=== PATIENT | male | born 1985 | race Caucasian/White ===

== ENCOUNTER 2016-11-19 18:46 | Emergency (ER) | payer OTHER ==
[2016-11-19] MEDS ORDERED: ONDANSETRON 4 MG TAB.RAPDIS PO ONE (19:27)
[2016-11-19] MEDS ORDERED: LORAZEPAM 1 MG TABLET PO ONE (19:27)
--- NOTE | 2016-11-19 19:30 | ER Document Report ---
ED Medical Screen (RME) - General Chief Complaint: Alcohol Withdrawl Stated Complaint: WEAKNESS Mode of Arrival: Ambulatory Information source: Patient Notes: Patient presents complaining of alcohol withdrawal symptoms. Patient reports tachycardia, tremors, nausea, vomiting and diaphoresis at home. Patient states that he last drank beer last night. Patient reports he typically drinks 12-18 beers a day. Patient states his doctor put him on Lexapro and naltrexone to help with his symptoms. hx: Hypertension, chronic alcoholism - Related Data Allergies/Adverse Reactions: No Known Allergies Allergy (Unverified 11/19/16 19:27) Physical Exam - Vital signs Vitals: Temp Pulse Resp BP Pulse Ox 98.1 F 95 20 148/80 H 98 11/19/16 19:03 11/19/16 19:03 11/19/16 19:03 11/19/16 19:03 11/19/16 19:03 - Neurological Neuro grossly intact: Yes Claude Coma Scale Eye Opening: Spontaneous Claude Coma Scale Verbal: Oriented Claude Coma Scale Motor: Obeys Commands Larry Coma Scale Total: 15 Notes: Tremors to bilateral upper extremities Course - Re-evaluation Re-evalutation: 11/19/16 19:[address] Scott regarding patient presentation, recommends giving Ativan 1 mg by mouth now. - Vital Signs Vital signs: Temp Pulse Resp BP Pulse Ox 98.1 F 95 20 148/80 H 98 11/19/16 19:03 11/19/16 19:03 11/19/16 19:03 11/19/16 19:03 11/19/16 19:03
[2016-11-19 19:59] LABS: ABSOLUTE MONOCYTES (AUTO) 0.7 10^3/uL (0.1-1.4); BASOPHILS % (AUTO) 0.3 % (0-2); EOSINOPHILS % (AUTO) 0.1 % (0-6); HEMATOCRIT 41.4 % (37.9-51.0); HEMOGLOBIN 14.3 g/dL (13.5-17.0); HGB HCT DIFFERENCE 1.5; LYMPHOCYTES % (AUTO) 8.8 % (13-45); MEAN CORPUSCULAR HEMOGLOBIN 32.6 pg (27.0-33.4); MEAN CORPUSCULAR HGB CONC 34.5 g/dL (32.0-36.0); MEAN CORPUSCULAR VOLUME 95 fl (80-97); MONOCYTES % (AUTO) 6.2 % (3-13); RED BLOOD COUNT 4.38 10^6/uL (4.35-5.55); RED CELL DISTRIBUTION WIDTH 13.4 % (11.5-14.0); SEGMENTED NEUTROPHILS % (AUTO) 84.6 % (42-78); WHITE BLOOD COUNT 11.8 10^3/uL (4.0-10.5)
[2016-11-19 20:02] LABS: APPEARANCE,URINE CLEAR; BILIRUBIN,URINE NEGATIVE (NEGATIVE); GLUCOSE, URINE >=500 mg/dL (NEGATIVE); KETONES,URINE 80 mg/dL (NEGATIVE); LEUKOCYTE ESTERASE,URINE NEGATIVE (NEGATIVE); NITRITE,URINE NEGATIVE (NEGATIVE); PROTEIN,URINE 30 mg/dL (NEGATIVE); URINE SPECIFIC GRAVITY 1.013; UROBILINOGEN,URINE NEGATIVE mg/dL (<2.0)
[2016-11-19 20:16] LABS: ALANINE AMINOTRANSFERASE 77 U/L (21-72); ALBUMIN 4.8 g/dL (3.5-5.0); ALCOHOL < 10 mg/dL (NONE DETECTED); ALKALINE PHOSPHATASE 86 U/L (38-126); ANION GAP 14 (5-19); ASPARTATE AMINO TRANSFERASE 57 U/L (17-59); BILIRUBIN,TOTAL 0.8 mg/dL (0.2-1.3); BLOOD UREA NITROGEN 8 mg/dL (7-20); CALCIUM 10.2 mg/dL (8.4-10.2); CARBON DIOXIDE 24 mmol/L (22-30); CHLORIDE 95 mmol/L (98-107); CREATININE RESULT 0.56 mg/dL (0.52-1.25); GLUCOSE 103 mg/dL (75-110); LIPASE 50.1 U/L (23-300); POTASSIUM 4.4 mmol/L (3.6-5.0); SODIUM 133.4 mmol/L (137-145); TOTAL PROTEIN 7.7 g/dL (6.3-8.2); URINE BARBITURATES SCREEN NEGATIVE; URINE METHADONE SCREEN NEGATIVE; URINE OPIATES LOW NEGATIVE; URINE PHENCYCLIDINE SCREEN NEGATIVE
--- NOTE | 2016-11-19 20:52 | ER Document Report ---
ED General - General Chief Complaint: Alcohol Withdrawl Stated Complaint: WEAKNESS Mode of Arrival: Ambulatory Information source: Patient Notes: Patient presents to the emergency department with report of withdrawal. Patient reports he drinks 12-20 beers a night for the past 13 years. Patient reports recently quit drinking. Reports last beer was last night. This morning he took his medications Lexapro and naltrexone, took a sip a beer and experienced projectile vomiting. Patient presented to the emergency department because he felt like his heart was racing he was sweaty nauseated. Patient denies suicide homicide ideations. He has his at his side. She reports she will be with him during this time. Patient reports the [place] is helping him. He has not attended any type of support groups. Patient was provided with Ativan when he first arrived. He reports he's feeling fine now. TRAVEL OUTSIDE OF THE [place] IN LAST 30 DAYS: No - HPI Onset: This morning Onset/Duration: Sudden Quality of pain: Achy Pain Level: 3 Associated symptoms: Body/muscle aches, Nausea, Vomiting, Sweating Exacerbated by: Denies Relieved by: Denies Similar symptoms previously: No Recently seen / treated by doctor: No - Related Data Allergies/Adverse Reactions: No Known Allergies Allergy (Unverified 11/19/16 19:27) Past Medical History - General Information source: Patient - Social History Smoking Status: Current Every Day Smoker Cigarette use (# per day): Yes Chew tobacco use (# tins/day): Yes Frequency of alcohol use: Heavy - quit drinking last night Drug Abuse: None Occupation: unemployed Lives with: Family Family History: Other - father and grandfather alcoholics Patient has suicidal ideation: No Patient has homicidal ideation: No - Past Medical History Cardiac Medical History: Reports: Hx Hypertension Renal/ Medical History: Denies: Hx Peritoneal Dialysis Surgical Hx: Negative Review of Systems - Review of Systems Notes: Review HPI for review of systems., All other systems negative Physical Exam - Vital signs Vitals: Temp Pulse Resp BP Pulse Ox 98.1 F 95 20 148/80 H 98 11/19/16 19:03 11/19/16 19:03 11/19/16 19:03 11/19/16 19:03 11/19/16 19:03 - Notes Notes: PHYSICAL EXAMINATION: GENERAL: Well-appearing and in no acute distress calm nontoxic looking HEAD: Atraumatic, normocephalic. EYES: Pupils equal round and reactive to light, extraocular movements intact, sclera anicteric, conjunctiva are normal. ENT: TM WNL, nares patent, oropharynx clear without exudates. Moist mucous membranes. NECK: Normal range of motion, supple without lymphadenopathy LUNGS: CTAB and equal. No wheezes rales or rhonchi. HEART: Regular rate and rhythm without murmurs BACK: No c/o pain ABDOMEN: Soft, no tenderness. No guarding, no rebound EXTREMITIES: Normal range of motion, no pitting edema. No cyanosis. NEUROLOGICAL: Cranial nerves grossly intact. Normal sensory/motor PSYCH: Normal mood, normal affect. calm, answers all questions appropriately SKIN: Warm, Dry, normal turgor, no rashes or lesions noted Course - Re-evaluation Re-evalutation: 11/19/16 21:23 I spent a long time discussing alcohol withdrawal with patient and his . We discussed support groups including RISSA and Erik. Patient is calm. He verbalized understanding to everything we talked about. I have consulted the attending provider Dr Bethea per [facility] guidelines. She was updated on patient current medications. Advised to dispo with valium taper. Patient and updated on plan, agree and verbalized understanding. Patient was instructed to return to the emergency department immediately for any concerns respiratory distress return of vomiting. - Vital Signs Vital signs: Temp Pulse Resp BP Pulse Ox 98.6 F 88 16 146/86 H 97 11/19/16 21:50 11/19/16 21:50 11/19/16 21:50 11/19/16 21:50 11/19/16 21:50 - Laboratory Result Diagrams: 11/19/16 19:30 11/19/16 19:30 Laboratory results interpreted by me: 11/19/16 11/19/16 11/19/16 19:30 19:30 19:30 WBC 11.8 H Seg Neutrophils % 84.6 H Lymphocytes % 8.8 L Absolute Neutrophils 10.0 H Sodium 133.4 L Chloride 95 L ALT 77 H Urine Protein 30 H Urine Glucose (UA) >=500 H Urine Ketones 80 H Discharge - Discharge Clinical Impression: Elevated blood pressure reading Alcohol withdrawal Qualifiers: Complication of substance-induced condition: uncomplicated Qualified Code(s): F10.230 - Alcohol dependence with withdrawal, uncomplicated Condition: Stable Disposition: HOME, SELF-CARE Instructions: Antinausea Medication ([facility]), Benzodiazepines ([facility]) Additional Instructions: *You have been evaluated for alcohol withdrawl *Take medication as prescribed *Follow up with a support group- AA tomorrow *[facility] *Return to ED for worsening condition, changes, needs Prescriptions: Diazepam [Valium 5 mg Tablet] 10 mg PO TID #15 tablet Forms: Elevated Blood Pressure
[2016-11-19] MEDS ORDERED: ONDANSETRON ODT 4 MG TAB (6 TAB/DSPK) PO PRN (21:00)
[2016-11-19 23:36] VITALS: BP 146/86
== END 2016-11-19 21:50 | disposition home or self-care (01) ==
LOC: ER 18:46
DX: R03.0 Elevated blood-pressure reading, without diagnosis of hypertension (principal); F10.230 Alcohol dependence with withdrawal, uncomplicated; R53.1 Weakness; Z79.899 Other long term (current) drug therapy; F17.210 Nicotine dependence, cigarettes, uncomplicated
CPT/HCPCS: 99284; 36415; 80307 ×2; 83690; 85025; 80053; 81001; S0119

== ENCOUNTER → 2017-07-09 | Outpatient (CLI) | payer OTHER ==
--- NOTE | 2017-07-10 08:44 | RADIOLOGY REPORT (SQ) ---
EXAM DESCRIPTION: MRI LT LOWER JOINT WITHOUT COMPLETED DATE/TIME: 07/09/2017 9:19 pm REASON FOR STUDY: OTHER INSTABILITY, LEFT KNEE,RADICULOPATHY, LUMBAR REGION M25.362 OTHER INSTABILI TY, LEFT KNEE M54.16 RADICULOPATHY, LUMBAR REGION COMPARISON: None. TECHNIQUE: Leftknee images acquired and stored on PACS. Multiplanar images include fat sensitive se quences as T1, water sensitive sequences as FST2 or STIR, cartilage sensitive sequences as FSPD, and gradient echo sequences. LIMITATIONS: None. FINDINGS: JOINT AND BURSAE: No effusion. BONE CORTEX AND MARROW: A nondepressed nondisplaced lateral tibial plateau fracture is present on cor onal image 18 and sagittal image 20. This involves the lateral edge of the articular surface, 2 cm b y 1 cm in size. Surrounding marrow edema. ACL: Intact. No degeneration or ganglion cyst. PCL: Intact. MCL: Intact. No periligamentous edema or fluid. LCL: Intact. No periligamentous edema or fluid. MEDIAL MENISCUS: No tears. No abnormal signal. LATERAL MENISCUS: No tears. No abnormal signal. MEDIAL COMPARTMENT: Cartilage preserved. No bone bruises or reactive marrow edema. No osteophytes. LATERAL COMPARTMENT: Cartilage preserved. No bone bruises or reactive marrow edema. No osteophytes. PATELLA: No chondromalacia. No subchondral cysts. Medial and lateral retinacula intact. EXTENSOR MECHANISM: Intact. Quadriceps and patella tendons normal. SOFT TISSUES: Adjacent muscles and subcutaneous tissues normal. Normal flow void in popliteal artery and vein. OTHER: No other significant finding. IMPRESSION: Nondepressed nondisplaced lateral tibial plateau fracture TECHNICAL DOCUMENTATION: JOB ID: [id number] [employer]- All Rights Reserved
--- NOTE | 2017-07-10 08:49 | RADIOLOGY REPORT (SQ) ---
EXAM DESCRIPTION: MRI LUMBAR SPINE WITHOUT COMPLETED DATE/TIME: 07/09/2017 9:19 pm REASON FOR STUDY: OTHER INSTABILITY, LEFT KNEE,RADICULOPATHY, LUMBAR REGION M25.362 OTHER INSTABILI TY, LEFT KNEE M54.16 RADICULOPATHY, LUMBAR REGION COMPARISON: None. TECHNIQUE: Sagittal and Axial imaging includes T1, T2, STIR and gradient echo sequences. Coronal T2/ HASTE imaging. LIMITATIONS: None. FINDINGS: VISUALIZED UPPER ABDOMEN: Limited evaluation. No acute or suspicious findings suggested. SEGMENTATION: No transitional anatomy. The lowest well-developed disc space is labeled L5-S1. ALIGNMENT: Anatomic. VERTEBRAE: Intact. BONE MARROW: Normal. No marrow replacement or reactive changes. DISC SIGNAL: Decreased T2 weighted intervertebral disc signal at L5-S1. POSTERIOR ELEMENTS: Generally intact. No pars defect evident. HARDWARE: None in the spine. CORD AND CONUS: Normal in size and signal intensity. Conus at the T12-L1 level. SOFT TISSUES: No aortic aneurysm seen. No bulky retroperitoneal adenopathy or mass. No paraspinal mas s or fluid. T11-12: At the upper edge of the field of view. Minimal bilateral facet hypertrophy. No central or foraminal stenosis T12-L1: No significant posterior disc bulging. Mild bilateral facet and ligament hypertrophy. No c entral or foraminal stenosis. L1-L2: No significant spinal stenosis or exit foraminal stenosis. Mild bilateral facet hypertrophy L2-L3: No significant spinal stenosis or exit foraminal stenosis. Mild bilateral facet hypertrophy L3-L4: No significant spinal stenosis or exit foraminal stenosis. Mild bilateral facet hypertrophy L4-L5: Broad diffuse posterior disc bulge. Moderate bilateral facet and ligament hypertrophy. Borde rline central canal narrowing. No significant foraminal narrowing L5-S1: Broad diffuse posterior disc bulging. Small central disc protrusion/ herniation partly efface s the ventral epidural fat without central stenosis. No significant mass effect on the exiting L5 or proximal S1 nerve roots. Mild bilateral inferior foraminal narrowing without exiting L5 nerve root impingement. SACRUM: Visualized upper sacrum intact. OTHER: No other significant findings. IMPRESSION: Mild lower lumbar degenerative changes TECHNICAL DOCUMENTATION: JOB ID: [id number]- All Rights Reserved
== END ==
LOC: RAD 19:55
PROVIDERS: ATTEND Family Medicine
DX: S82.145A Nondisplaced bicondylar fracture of left tibia, initial encounter for closed fracture (principal); M25.362 Other instability, left knee; X58.XXXA Exposure to other specified factors, initial encounter; M54.16 Radiculopathy, lumbar region
CPT/HCPCS: 72148

== ENCOUNTER 2018-03-20 14:27 | Emergency (ER) | payer OTHER ==
[2018-03-20 14:33] VITALS: BP 142/81
--- NOTE | 2018-03-20 14:56 | ER Document Report ---
ED General - General Chief Complaint: ETOH Abuse Stated Complaint: SUBSTANCE ABUSE ASSISTANCE Time Seen by Provider: 03/20/18 14:44 Notes: 32-year-old male here with who states that patient would like to seek help with alcohol abuse. He has been to inpatient rehab once in January 2017 and was able to stay sober for 11 months but then started drinking again "because my life sucks". He drinks 12-24 beers daily. He denies SI HI hallucinations illicit drug use. TRAVEL OUTSIDE OF THE [place] IN LAST 30 DAYS: No - Related Data Allergies/Adverse Reactions: No Known Allergies Allergy (Unverified 03/20/18 14:28) Past Medical History - Social History Smoking Status: Current Every Day Smoker Frequency of alcohol use: Heavy Drug Abuse: None Family History: Other - father and grandfather alcoholics Patient has suicidal ideation: No Patient has homicidal ideation: No - Past Medical History Cardiac Medical History: Reports: Hx Hypertension Renal/ Medical History: Denies: Hx Peritoneal Dialysis Psychiatric Medical History: Reports: Hx Depression Review of Systems - Review of Systems Notes: See history of present illness for pertinent positive review of systems; otherwise all review of systems have been reviewed and are negative Physical Exam - Vital signs Vitals: Temp Pulse Resp BP Pulse Ox 98.9 F 97 16 142/81 H 96 03/20/18 14:32 03/20/18 14:32 03/20/18 14:32 03/20/18 14:32 03/20/18 14:32 - Notes Notes: PHYSICAL EXAMINATION: GENERAL: Well-appearing and in no acute distress. HEAD: Atraumatic, normocephalic. EYES: Pupils equal round and reactive to light, extraocular movements intact, sclera anicteric, conjunctiva are normal. ENT: nares patent, oropharynx clear without exudates. Moist mucous membranes. NECK: Normal range of motion, supple without lymphadenopathy LUNGS: CTAB and equal. No wheezes rales or rhonchi. HEART: Regular rate and rhythm without murmurs ABDOMEN: Soft, no tenderness. No facial grimacing/wincing upon palpation. No guarding, no rebound. EXTREMITIES: Normal range of motion, no pitting edema. No cyanosis. NEUROLOGICAL: Cranial nerves grossly intact. Normal sensory/motor exams. PSYCH: Normal mood, normal affect. Not suicidal or homicidal or hallucinating SKIN: Warm, Dry, normal turgor, no rashes or lesions noted Course - Re-evaluation Re-evalutation: 03/20/18 14:54 MEDICAL DECISION MAKING: Patient wants to detox from alcohol from his own house He does not want to go be admitted to an inpatient detox facility Have provided him with information for integrated family services if he changes his mind Discussed with the as well Patient and understands and agrees to the plan of care - Vital Signs Vital signs: Temp Pulse Resp BP Pulse Ox 98.9 F 97 16 142/81 H 96 03/20/18 14:32 03/20/18 14:32 03/20/18 14:32 03/20/18 14:32 03/20/18 14:32 Discharge - Discharge Clinical Impression: ETOH abuse Condition: Good Disposition: HOME, SELF-CARE Additional Instructions: You were seen in the emergency department at [facility]. Please call integrated family services if you change your mind about going to rehab for alcohol abuse. Please followup with your primary physician in the next few days for further management/evaluation. Please return to the emergency department for worsening of symptoms or any symptom that you deem to be concerning or life-threatening. Thank you for allowing us to be part of your care. Referrals: CLAUDETTE CHRISTIANSON DO [Primary Care Provider] - Follow up as needed
== END 2018-03-20 15:00 | disposition home or self-care (01) ==
LOC: ER 14:27
DX: F10.10 Alcohol abuse, uncomplicated (principal); F17.200 Nicotine dependence, unspecified, uncomplicated; I10 Essential (primary) hypertension; Z81.1 Family history of alcohol abuse and dependence
CPT/HCPCS: 99281

== ENCOUNTER 2019-08-09 08:57 | Emergency (ER) | payer OTHER ==
[2019-08-09 10:23] VITALS: BP 142/95
--- NOTE | 2019-08-09 11:37 | ER Document Report ---
ED Substance Abuse / Acc. OD - General Chief Complaint: ETOH Abuse Stated Complaint: PSYCH EVAL Time Seen by Provider: 08/09/19 10:10 Notes: 33-year-old male presents for alcohol intoxication. Patient initially stated that he wanted help however is now stating that he does not want help. Patient denies SI or HI. Patient denies ever having DTs with alcohol withdrawal. Patient currently has no complaints. TRAVEL OUTSIDE OF THE [place] IN LAST 30 DAYS: No - Related Data Allergies/Adverse Reactions: No Known Allergies Allergy (Unverified 03/20/18 14:28) Home Medications: Lexapro. Lisinopril Past Medical History - Social History Smoking Status: Unknown if Ever Smoked Chew tobacco use (# tins/day): Yes Frequency of alcohol use: Heavy Family History: Other - father and grandfather alcoholics Patient has suicidal ideation: No Patient has homicidal ideation: No - Past Medical History Cardiac Medical History: Reports: Hx Hypertension Renal/ Medical History: Denies: Hx Peritoneal Dialysis Psychiatric Medical History: Reports: Hx Depression Review of Systems - Review of Systems Notes: Constitutional: Negative for fever. HENT: Negative for sore throat. Eyes: Negative for visual changes. Cardiovascular: Negative for chest pain. Respiratory: Negative for shortness of breath. Gastrointestinal: Negative for abdominal pain, vomiting or diarrhea. Genitourinary: Negative for dysuria. Musculoskeletal: Negative for back pain. Skin: Negative for rash. Neurological: Negative for headaches, weakness or numbness. 10 point ROS negative except as marked above and in HPI. Physical Exam - Vital signs Vitals: Temp Pulse BP Pulse Ox 97.9 F 106 H 142/95 H 96 08/09/19 10:15 08/09/19 10:15 08/09/19 10:15 08/09/19 10:15 - Notes Notes: GENERAL: Well-appearing, well-nourished and in no acute distress. HEAD: Atraumatic, normocephalic. EYES: Extraocular movements intact, sclera anicteric, conjunctiva are normal. NECK: Normal range of motion, supple without lymphadenopathy or JVD. LUNGS: Breath sounds clear to auscultation bilaterally and equal. No wheezes rales or rhonchi. HEART: Regular rate and rhythm without murmurs, rubs or gallops. ABDOMEN: Soft, nontender. No guarding, no rebound. No masses appreciated. EXTREMITIES: Normal range of motion, no pitting or edema. No clubbing or cyanosis. NEUROLOGICAL: Cranial nerves II through XII grossly intact. Normal speech, normal gait. PSYCH: Normal mood, normal affect. SKIN: Warm, Dry, normal turgor, no rashes or lesions noted. Course - Re-evaluation Re-evalutation: 08/09/19 33-year-old male presents for alcohol intoxication. Patient's alcohol level was 0.43. Patient is calm and cooperative. Patient denies any SI or HI. Patient to be observed for a few hours until clinically sober and then discharged. 08/09/19 12:11 Pt observed for 3 hours. No DT's. Ambulates without difficulty. Pt continues to denies SI/HI. Pt given outpatient resources for alcohol detox. All questions/concerns addressed prior to discharge. - Vital Signs Vital signs: Temp Pulse Resp BP Pulse Ox 97.9 F 106 H 142/95 H 96 08/09/19 10:15 08/09/19 10:15 08/09/19 10:15 08/09/19 10:15 Discharge - Discharge Clinical Impression: Alcohol intoxication Qualifiers: Complication of substance-induced condition: uncomplicated Qualified Code(s): F10.920 - Alcohol use, unspecified with intoxication, uncomplicated Condition: Stable Disposition: HOME, SELF-CARE Instructions: Chronic Alcoholism ([facility]), Acute Alcohol Intoxication ([facility]) Additional Instructions: Please follow up with one of the outpatient resources given to you. Return to ER for any worsening symptoms, including nausea/vomiting, seizures, abdominal pain, chest pain, fever, or any other concerning symptoms to you.
[2019-08-09] MEDS ORDERED: NICOTINE 14 MG/24 HR PATCH.TD24 TD ONE (11:43)
== END 2019-08-09 12:28 | disposition home or self-care (01) ==
LOC: ER 08:57
DX: F10.120 Alcohol abuse with intoxication, uncomplicated (principal); F32.9 Major depressive disorder, single episode, unspecified; I10 Essential (primary) hypertension; Z79.899 Other long term (current) drug therapy; Z72.0 Tobacco use
CPT/HCPCS: 99284